=== PATIENT | male | born 1970 | race Caucasian/White ===

== ENCOUNTER 2018-12-12 16:44 | Emergency (ER) | payer OTHER ==
[~2018-12-12] VITALS: Ht 172.7 cm; Wt 95.3 kg
[~2018-12-12 16:44] MED LIST: ALBUTEROL SULF8.5 GM IH; FLEXERIL PO; FLOMAX0.4 MG PO; HYDROCODONE-AP1 EAC6 PO; IBUPROFEN 800800 M1 PO; NOHOMEMEDICATIONS; NORCO 5-325 TA1 EACH PO; PERCOCET 5-3251 EACH PO; ZOFRAN ODT4 MG PO
[2018-12-12] MEDS ORDERED: ROBAXIN500 MG PO (16:55)
[2018-12-12] MEDS ORDERED: IBU600 MG PO (16:55)
[2018-12-12 17:10] VITALS: BP 148/85
== END 2018-12-12 17:20 | disposition home or self-care (01) ==
LOC: M.ERS 16:44
DX: S39.012A Strain of muscle, fascia and tendon of lower back, initial encounter (principal); F17.210 Nicotine dependence, cigarettes, uncomplicated; Z88.1 Allergy status to other antibiotic agents; Z88.5 Allergy status to narcotic agent; X50.1XXA Overexertion from prolonged static or awkward postures, initial encounter; Y93.89 Activity, other specified; Y92.89 Other specified places as the place of occurrence of the external cause; Y99.8 Other external cause status

== ENCOUNTER 2019-04-21 16:33 | Emergency (ER) | payer BC ==
[~2019-04-21] VITALS: Ht 180.3 cm; Wt 99.8 kg
[~2019-04-21 16:33] MED LIST changes: +IBU600 MG PO; +ROBAXIN500 MG PO
[2019-04-21] MEDS ORDERED: NORCO 5-325 TA1 EAC1 PO (17:39)
[2019-04-21 18:13] VITALS: BP 110/77
== END 2019-04-21 18:14 | disposition home or self-care (01) ==
LOC: M.ERS 16:33
DX: S62.622A Displaced fracture of middle phalanx of right middle finger, initial encounter for closed fracture (principal); Z88.5 Allergy status to narcotic agent; Z88.1 Allergy status to other antibiotic agents; F17.210 Nicotine dependence, cigarettes, uncomplicated; W22.8XXA Striking against or struck by other objects, initial encounter; Y93.89 Activity, other specified; Y92.89 Other specified places as the place of occurrence of the external cause; Y99.8 Other external cause status

== ENCOUNTER 2019-07-09 23:55 | Emergency (ER) | payer BC ==
[~2019-07-09] VITALS: Ht 180.3 cm; Wt 99.8 kg
[~2019-07-09 23:55] MED LIST changes: +NORCO 5-325 TA1 EAC1 PO
[2019-07-10 00:23] LABS: ABSOLUTE BASOPHILS 0.1 thou/uL (0.0-0.2); ABSOLUTE EOSINOPHILS 0.1 thou/uL (0.0-0.7); ABSOLUTE LYMPHOCYTES 3.6 thou/uL (0.8-5.3); ABSOLUTE MONOCYTES 0.6 thou/uL (0.0-1.2); ABSOLUTE NEUTROPHILS 3.3 thou/uL (1.6-8.1); BASOPHILS 0.7 %; EOSINOPHILS 1.1 %; HEMATOCRIT 42.8 % (42.0-52.0); HEMOGLOBIN 14.7 gm/dL (14.0-18.0); LYMPHOCYTES 47.3 %; MCH 29.8 pg (26.0-34.0); MCHC 34.4 g/dL (28.0-37.0); MCV 86.6 fL (80.0-100.0); MONOCYTES 8.3 %; MPV 7.8 fl. (7.2-11.1); NUCLEATED RBCS 0 /100WBC; PLATELET COUNT* 286 thou/uL (150-400); POLYS 42.6 %; RBC 4.94 mil/uL (4.50-6.00); RDW-CV 12.8 % (10.5-14.5); WBC 7.6 thou/uL (4.0-11.0)
[2019-07-10 00:25] LABS: CALCIUM 9.2 mg/dL (8.5-10.1); CREATININE 1.1 mg/dL (0.6-1.3); POTASSIUM 3.8 mmol/L (3.5-5.1)
[2019-07-10 00:29] LABS: ALBUMIN 3.8 g/dL (3.4-5.0); TOTAL BILIRUBIN 0.3 mg/dL (<0.1-1.0); TOTAL PROTEIN 7.4 g/dL (6.4-8.2)
[2019-07-10] MEDS ORDERED: PERCOCET 5-3251 EACH PO (00:49)
[2019-07-10] MEDS ORDERED: CIPROFLOXACIN500 M1 PO (00:49)
[2019-07-10] MEDS ORDERED: FLOMAX0.4 MG PO (00:49)
[2019-07-10 00:59] VITALS: BP 160/88
== END 2019-07-10 01:00 | disposition home or self-care (01) ==
LOC: M.ERS 23:55
PROVIDERS: Family Medicine
DX: N20.0 Calculus of kidney (principal); F17.210 Nicotine dependence, cigarettes, uncomplicated; Z88.5 Allergy status to narcotic agent; Z88.1 Allergy status to other antibiotic agents